=== PATIENT | female | born 1980 | race Caucasian/White ===

== ENCOUNTER 2019-03-01 13:10 | Emergency (ER) | payer OTHER ==
[~2019-03-01] VITALS: Ht 165 cm; Wt 93.1 kg
[~2019-03-01 13:10] MED LIST: AZIT250T12 PO; PRD20T PO
--- NOTE | 2019-03-01 13:29 | ED GI ---
General Chief Complaint: Abdominal/GI Problems Stated Complaint: VOMITING / DIARRHEA Source of Information: Patient Exam Limitations: No Limitations History of Present Illness Date Seen by Provider: Mar 01, 2019 Time Seen by Provider: 13:28 Initial Comments To ER with nausea vomiting diarrhea for 3 days. Last night she seemed to be on the min, this morning at all recurred. She has some intermittent cramping to the right upper abdomen, intermittent cramping to the lower abdomen prior to a bowel movement. No fever no chills Timing/Duration: 1-2 Days Severity/Quality: Cramping Location: RUQ, Suprapubic Radiation: No Radiation Activities at Onset: None Associated Symptoms: Nausea/Vomiting Allergies and Home Medications Allergies Coded Allergies: Penicillins (Verified Allergy, Unknown, 12/13/15) Tetracyclines (Verified Allergy, Unknown, 12/13/15) acetaminophen (Verified Allergy, Unknown, 12/13/15) hydrocodone (Verified Allergy, Unknown, 12/13/15) iodine (Verified Allergy, Unknown, 12/13/15) Home Medications Azithromycin 250 Mg Tablet, 250 MG PO UD TAKE 2 TABLETS ON DAY ONE THEN TAKE 1 TABLET DAILY FOR FOUR MORE DAYS Prescribed by: MICHAEL MORALES on 12/13/152007 Prednisone 20 Mg Tab, 40 MG PO DAILY Prescribed by: MICHAEL MORALES on 12/13/152007 Patient Home Medication List Home Medication List Reviewed: Yes Review of Systems Review of Systems Constitutional: see HPI EENTM: No Symptoms Reported Respiratory: No Symptoms Reported Cardiovascular: No Symptoms Reported Gastrointestinal: See HPI, Abdominal Pain, Diarrhea, Nausea, Vomiting Genitourinary: No Symptoms Reported Musculoskeletal: no symptoms reported Skin: no symptoms reported Psychiatric/Neurological: No Symptoms Reported Endocrine: No Symptoms Reported Hematologic/Lymphatic: No Symptoms Reported Past Ugkzovz-Ucqkfl-Cawxko Hx Patient Social History Type Used: Cigarettes Recent Foreign Travel: No Contact w/Someone Who Travel: No Recent Hopitalizations: No Past Medical History Abdominal Reproductive Disorders: No Diverticulosis Physical Exam Vital Signs Vital Signs - First Documented 03/01/19 13:23 Pulse 109 Resp 20 B/P (MAP) 126/98 (107) Pulse Ox 97 O2 Delivery Room Air Capillary Refill : Height/Weight/BMI Height: 5'" Weight: 200lbs. oz. 90.056379pr; BMI Method:Stated General Appearance: WD/WN, no apparent distress, other (alert no distress very pleasant. A little tachycardia at 103-105) HEENT: PERRL/EOMI, normal ENT inspection Respiratory: no respiratory distress, no accessory muscle use Cardiovascular: no murmur, tachycardia Gastrointestinal: normal bowel sounds, non tender, soft Extremities: normal range of motion, non-tender Neurologic/Psychiatric: alert, normal mood/affect, oriented x 3 Skin: normal color, warm/dry Progress/Results/Core Measures Results/Orders Lab Results Laboratory Tests Test 03/01/19 13:50 Range/Units White Blood Count 11.1 H 4.3-11.0 10^3/uL Red Blood Count 5.72 4.35-5.85 10^6/uL Hemoglobin 13.8 11.5-16.0 G/DL Hematocrit 42 35-52 % Mean Corpuscular Volume 73 L 80-99 FL Mean Corpuscular Hemoglobin 24 L 25-34 PG Mean Corpuscular Hemoglobin Concent 33 32-36 G/DL Red Cell Distribution Width 18.9 H 10.0-14.5 % Platelet Count 476 H 130-400 10^3/uL Mean Platelet Volume 9.7 7.4-10.4 FL Neutrophils (%) (Auto) 87 H 42-75 % Lymphocytes (%) (Auto) 7 L 12-44 % Monocytes (%) (Auto) 5 0-12 % Eosinophils (%) (Auto) 1 0-10 % Basophils (%) (Auto) 0 0-10 % Neutrophils # (Auto) 9.7 H 1.8-7.8 X 10^3 Lymphocytes # (Auto) 0.8 L 1.0-4.0 X 10^3 Monocytes # (Auto) 0.6 0.0-1.0 X 10^3 Eosinophils # (Auto) 0.1 0.0-0.3 10^3/uL Basophils # (Auto) 0.0 0.0-0.1 10^3/uL My Orders Orders - MICHAEL MORALES APRN Cbc With Automated Diff (03/01/19 13:25) Comprehensive Metabolic Panel (03/01/19 13:25) Lipase (03/01/19 13:25) Ua Culture If Indicated (03/01/19 13:25) Hcg,Qualitative Serum (03/01/19 13:25) Ns Iv 1000 Ml (Sodium Chloride 0.9%) (03/01/19 13:30) Ondansetron Injection (Zofran Injectio (03/01/19 13:30) Hyoscyamine Sl Tablet (Levsin Sl Tablet) (03/01/19 13:30) Manual Differential (03/01/19 13:50) Medications Given in ED Current Medications Medications Dose Ordered Sig/Shima Route Start Time Stop Time Status Last Admin Dose Admin Hyoscyamine Sulfate 0.25 mg ONCE ONCE PO 03/01/19 13:30 03/01/19 13:31 DC 03/01/19 13:47 0.25 MG Ondansetron HCl 8 mg ONCE ONCE IVP 03/01/19 13:30 03/01/19 13:31 DC 03/01/19 13:47 8 MG Vital Signs/I&O 03/01/19 13:23 Pulse 109 Resp 20 B/P (MAP) 126/98 (107) Pulse Ox 97 O2 Delivery Room Air Departure Impression Primary Impression: Nausea vomiting and diarrhea Disposition: HOME, SELF-CARE Condition: Improved Departure-Patient Inst. Decision time for Depature: 14:00 Referrals: [facility] [place] (PCP) Primary Care Physician CHARO HERNANDEZ APRN (Family) Primary Care Physician Patient Instructions: Viral Gastroenteritis, Adult (DC) Add. Discharge Instructions: 1. Take nausea medication as directed 2. Clear liquids only for the next 12 hours such as Pedialyte, Gatorade, chicken broth, Jell-O. Use the nausea medication in addition to fyrf-iab-yymonxp antidiarrheals like Imodium to help with diarrhea. Follow-up with your doctor next week for recheck and further evaluation if symptoms persist. All discharge instructions reviewed with patient and/or family. Voiced understanding. Scripts Ondansetron (Ondansetron Odt) 8 Mg Tab.rapdis 8 MG PO Q6H PRN for NAUSEA/VOMITING-1ST LINE, #20 TAB Prov: MICHAEL MORALES APRN 03/01/19 Work/School Note: Work Release Form Date Seen in the Emergency Department: Mar 01, 2019 Return to Work: Mar 03, 2019 MICHAEL MORALES APRN Mar 01, 2019 13:29
[2019-03-01] MEDS ORDERED: ONDANSETRON 4 MG/2 ML (SDV) Z0FRAN IVP ONE (13:30)
[2019-03-01] MEDS ORDERED: HYOSCYAMINE 0.125 MG (LEVSIN) TAB PO ONE (13:30)
[2019-03-01] MEDS ORDERED: NS IV 1000 ML 1,000 ML IV SCH (13:30)
[2019-03-01 13:59] LABS: BASOPHILS % (AUTO) 0 % (0-10); EOSINOPHILS # (AUTO) 0.1 10^3/uL (0.0-0.3); EOSINOPHILS % (AUTO) 1 % (0-10); HEMATOCRIT 42 % (35-52); HEMOGLOBIN 13.8 G/DL (11.5-16.0); LYMPHOCYTES # (AUTO) 0.8 X 10^3 (1.0-4.0); LYMPHOCYTES % (AUTO) 7 % (12-44); MEAN CORPUSCULAR HEMOGLOBIN 24 PG (25-34); MEAN CORPUSCULAR HGB CONC 33 G/DL (32-36); MEAN CORPUSCULAR VOLUME 73 FL (80-99); MEAN PLATELET VOLUME 9.7 FL (7.4-10.4); MONOCYTES # (AUTO) 0.6 X 10^3 (0.0-1.0); MONOCYTES % (AUTO) 5 % (0-12); NEUTROPHILS # (AUTO) 9.7 X 10^3 (1.8-7.8); NEUTROPHILS % (AUTO) 87 % (42-75); PLATELET COUNT 476 10^3/uL (130-400); RED CELL DISTRIBUTION WIDTH 18.9 % (10.0-14.5); WHITE BLOOD COUNT 11.1 10^3/uL (4.3-11.0)
[2019-03-01] MEDS ORDERED: ONDA8TAB13 PO (14:02)
[2019-03-01 14:18] LABS: ALANINE AMINOTRANSFERASE 24 U/L (0-55); ALBUMIN 4.5 GM/DL (3.2-4.5); ALKALINE PHOSPHATASE 113 U/L (40-136); BILIRUBIN,TOTAL 0.4 MG/DL (0.1-1.0); BUN/CREATININE RATIO 14; CALCIUM 9.5 MG/DL (8.5-10.1); CARBON DIOXIDE 19 MMOL/L (21-32); CHLORIDE 104 MMOL/L (98-107); CREATININE SERUM 0.93 MG/DL (0.60-1.30); GFR ESTIMATED > 60; GLUCOSE 116 MG/DL (70-105); LIPASE 16 U/L (8-78); SODIUM 135 MMOL/L (135-145)
[2019-03-01 14:33] LABS: EOSINOPHILS % (MANUAL) 1 %; LYMPHOCYTES % (MANUAL) 1 %; MONOCYTES % (MANUAL) 4 %; NEUTROPHILS % (MANUAL) 91 %
[2019-03-01 14:33] LABS: BILIRUBIN,URINE NEGATIVE (NEGATIVE); CLARITY,URINE CLEAR; COLOR,URINE YELLOW; GLUCOSE, URINE (UA) NEGATIVE (NEGATIVE); KETONES,URINE NEGATIVE (NEGATIVE); LEUKOCYTE ESTERASE ,URINE NEGATIVE (NEGATIVE); NITRITE,URINE NEGATIVE (NEGATIVE); PROTEIN,URINE NEGATIVE (NEGATIVE)
[2019-03-01 14:36] LABS: ANISOCYTOSIS MODERATE; MICROCYTOSIS MODERATE
[2019-03-01 14:41] LABS: BACTERIA,URINE FEW /HPF; RBC,URINE RARE /HPF
[2019-03-01] MEDS ORDERED: PROMETHAZINE INJ 25 MG/ML (PHENERGAN) AMP IVP ONE (15:00)
[2019-03-01 15:47] VITALS: BP 121/90
== END 2019-03-01 15:40 | disposition home or self-care (01) ==
LOC: EDUNIT# 13:10 → ER 13:11
DX: R19.7 Diarrhea, unspecified (principal); R11.2 Nausea with vomiting, unspecified; Z88.0 Allergy status to penicillin; Z88.1 Allergy status to other antibiotic agents; Z88.6 Allergy status to analgesic agent; Z88.8 Allergy status to other drugs, medicaments and biological substances; Z79.52 Long term (current) use of systemic steroids; Z87.19 Personal history of other diseases of the digestive system
CPT/HCPCS: 36415; 80053; 81000; 83690; 84703; 85007; 85025; 85027; 96361; 96374; 96375

== ENCOUNTER → 2020-02-12 | Outpatient (CLI) | payer SELFPAY ==
[~2020-02-12] VITALS: Ht 162 cm; Wt 86.0 kg
[~2020-02-12] MED LIST changes: +KETOROLAC 60 MG/2 ML VIAL IM ONE; +KETOROLAC 60 MG/2 ML VIAL ONE; +ONDA8TAB13 PO
[2020-02-12 20:15] VITALS: BP 144/88
== END ==
LOC: ER 20:17
PROVIDERS: ATTEND Emergency Medicine
DX: M54.9 Dorsalgia, unspecified (principal)
CPT/HCPCS: 96372

== ENCOUNTER 2021-06-07 18:09 | Emergency (ER) | payer OTHER ==
[~2021-06-07 18:09] MED LIST changes: -KETOROLAC 60 MG/2 ML VIAL IM ONE; -KETOROLAC 60 MG/2 ML VIAL ONE
[2021-06-07] MEDS ORDERED: meTOprolol TARTRATE 50 MG (LOPRESSOR) TAB PO ONE (18:15)
--- NOTE | 2021-06-07 18:28 | ED General ---
General Chief Complaint: General Problems/Pain Stated Complaint: HIGH BLOOD PRESSURE, HIGH HEART RATE Source of Information: Patient Exam Limitations: No Limitations (MICHAEL MORALES APRN) History of Present Illness Date Seen by Provider: Jun 07, 2021 Time Seen by Provider: 18:28 Initial Comments To Er with c/o headache, dizziness, heart pounding, SOA with exertion, general fatigue x4 days. Timing/Duration: 4-5 Days Severity: Moderate Associated Systoms: No Chest Pain, No Cough, No Diaphoresis, No Fever/Chills; Headaches; No Nausea/Vomiting; Weakness (MICHAEL MORALES APRN) Allergies and Home Medications Allergies Coded Allergies: Penicillins (Verified Allergy, Unknown, 12/13/15) Tetracyclines (Verified Allergy, Unknown, 12/13/15) acetaminophen (Verified Allergy, Unknown, 12/13/15) hydrocodone (Verified Allergy, Unknown, 12/13/15) iodine (Verified Allergy, Unknown, 12/13/15) Patient Home Medication List Home Medication List Reviewed: Yes (MICHAEL MORALES APRN) Azithromycin (Azithromycin) 250 Mg Tablet, 250 MG PO UD Prescribed by: MICHAEL MORALES on 12/13/152007 Metoprolol Succinate (Toprol Xl) 50 Mg Tab.er.24h, 50 MG PO DAILY Prescribed by: MICHAEL MORALES on 06/07/21 193 Ondansetron (Ondansetron Odt) 8 Mg Tab.rapdis, 8 MG PO Q6H PRN for NAUSEA/VOMITING-1ST LINE Prescribed by: MICHAEL MORALES on 03/01/19 140 Prednisone (Prednisone) 20 Mg Tab, 40 MG PO DAILY Prescribed by: MICHAEL MORALES on 12/13/152007 Review of Systems Review of Systems Constitutional: see HPI EENTM: see HPI Respiratory: no symptoms reported Cardiovascular: no symptoms reported Genitourinary: no symptoms reported Musculoskeletal: no symptoms reported Skin: no symptoms reported Psychiatric/Neurological: No Symptoms Reported (MICHAEL MORALES APRN) Past Busxjet-Hrgfwd-Uypurz Hx Past Medical History Surgeries: Yes (colon resection) Abdominal Respiratory: No Cardiac: No Neurological: No Reproductive Disorders: No Gastrointestinal: Yes Diverticulosis Musculoskeletal: No Endocrine: No Cancer: No Psychosocial: No Integumentary: No Blood Disorders: No (MICHAEL MORALES APRN) Physical Exam Vital Signs Vital Signs - First Documented 06/07/21 06/07/21 18:22 19:48 Temp 36.0 Pulse 121 Resp 24 B/P (MAP) 148/120 (129) Pulse Ox 99 O2 Delivery Room Air (DIPIKAFRANNY Cleo KURTZ) Vital Signs Capillary Refill : (MICHAEL MORALES APRN) Height, Weight, BMI Height: 5'" Weight: 200lbs. oz. 90.468469qs; 34.00 BMI Method:Stated General Appearance: No Apparent Distress, WD/WN, Other (HR 122 sinus, BP 140/90 and 170/90s) Eyes: Bilateral Eye Normal Inspection, Bilateral Eye PERRL, Bilateral Eye EOMI HEENT: PERRL/EOMI, TMs Normal Neck: Full Range of Motion Respiratory: No Accessory Muscle Use, Other (lungs cta but appears dyspneic) Cardiovascular: Regular Rate, Rhythm, Normal Peripheral Pulses Gastrointestinal: Normal Bowel Sounds, Non Tender, Soft Extremity: Normal Capillary Refill, Normal Inspection Neurologic/Psychiatric: Alert, Oriented x3 Skin: Normal Color, Warm/Dry (MICHAEL MORALES APRN) Progress/Results/Core Measures Suspected Sepsis SIRS Temperature: Pulse: Respiratory Rate: Laboratory Tests 06/07/21 18:21: White Blood Count 7.2 Blood Pressure / Mean: Laboratory Tests 06/07/21 18:21: Creatinine 0.91, Platelet Count 562H, Total Bilirubin 0.3 (MICHAEL MORALES APRN) Results/Orders Lab Results Laboratory Tests Test 06/07/21 18:21 06/07/21 18:26 Range/Units White Blood Count 7.2 4.3-11.0 10^3/uL Red Blood Count 4.85 3.80-5.11 10^6/uL Hemoglobin 11.5 11.5-16.0 g/dL Hematocrit 37 35-52 % Mean Corpuscular Volume 77 L 80-99 fL Mean Corpuscular Hemoglobin 24 L 25-34 pg Mean Corpuscular Hemoglobin Concent 31 L 32-36 g/dL Red Cell Distribution Width 15.3 H 10.0-14.5 % Platelet Count 562 H 130-400 10^3/uL Mean Platelet Volume 9.2 9.0-12.2 fL Immature Granulocyte % (Auto) 1 % Neutrophils (%) (Auto) 57 42-75 % Lymphocytes (%) (Auto) 31 12-44 % Monocytes (%) (Auto) 7 0-12 % Eosinophils (%) (Auto) 3 0-10 % Basophils (%) (Auto) 1 0-10 % Neutrophils # (Auto) 4.1 1.8-7.8 10^3/uL Lymphocytes # (Auto) 2.2 1.0-4.0 10^3/uL Monocytes # (Auto) 0.5 0.0-1.0 10^3/uL Eosinophils # (Auto) 0.2 0.0-0.3 10^3/uL Basophils # (Auto) 0.1 0.0-0.1 10^3/uL Immature Granulocyte # (Auto) 0.0 0.0-0.1 10^3/uL D-Dimer 0.46 0.00-0.49 UG/ML Sodium Level 138 135-145 MMOL/L Potassium Level 3.7 3.6-5.0 MMOL/L Chloride Level 104 98-107 MMOL/L Carbon Dioxide Level 19 L 21-32 MMOL/L Anion Gap 15 H 5-14 MMOL/L Blood Urea Nitrogen 9 7-18 MG/DL Creatinine 0.91 0.60-1.30 MG/DL Estimat Glomerular Filtration Rate 82 BUN/Creatinine Ratio 10 Glucose Level 126 H 70-105 MG/DL Calcium Level 9.2 8.5-10.1 MG/DL Corrected Calcium 9.2 8.5-10.1 MG/DL Total Bilirubin 0.3 0.1-1.0 MG/DL Aspartate Amino Transf (AST/SGOT) 14 5-34 U/L Alanine Aminotransferase (ALT/SGPT) 20 0-55 U/L Alkaline Phosphatase 121 40-136 U/L Troponin I < 0.028 <0.028 NG/ML C-Reactive Protein High Sensitivity 1.46 H 0.00-0.50 MG/DL Total Protein 7.7 6.4-8.2 GM/DL Albumin 4.0 3.2-4.5 GM/DL Procalcitonin 0.03 <0.10 NG/ML Thyroid Stimulating Hormone (TSH) 2.06 0.35-4.94 UIU/ML Serum Test, Qualitative NEGATIVE NEGATIVE Monoscreen NEGATIVE NEGATIVE Influenza Type A (RT-PCR) Not Detected Not Detecte Influenza Type B (RT-PCR) Not Detected Not Detecte SARS-CoV-2 RNA (RT-PCR) Not Detected Not Detecte (FRANNY BAR DO) Medications Given in ED Current Medications Medications Dose Ordered Sig/Shima Route Start Time Stop Time Status Last Admin Dose Admin Metoprolol Tartrate 50 mg ONCE ONCE PO 06/07/21 18:15 06/07/21 18:17 DC 06/07/21 18:27 50 MG (FRANNY BAR DO) Vital Signs/I&O 06/07/21 06/07/21 18:22 19:48 Temp 36.0 36.0 Pulse 121 101 Resp 24 20 B/P (MAP) 148/120 (129) 129/103 Pulse Ox 99 O2 Delivery Room Air (FRANNY BAR DO) Vital Signs/I&O Capillary Refill : (MICHAEL MORALES APRN) Departure Communication (Admissions) 1934-BP down to 134/84, HR 89. (MICHAEL MORALES APRN) Impression Primary Impression: Hypertension Additional Impression: Viral syndrome Disposition: HOME, SELF-CARE Condition: Stable Departure-Patient Inst. Decision time for Depature: 19:05 (MICHAEL MORALES APRN) Referrals: [facility] [place] (PCP) Primary Care Physician CHARO HERNANDEZ APRN (Family) Primary Care Physician Patient Instructions: High Blood Pressure (DC), Viral Syndrome (DC) Scripts Metoprolol Succinate (Toprol Xl) 50 Mg Tab.er.24h 50 MG PO DAILY, #20 TAB Prov: MICHAEL MORALES APRN 06/07/21 Work/School Note: Work Release Form Date Seen in the Emergency Department: Jun 07, 2021 Return to Work: Jun 08, 2021 ATTENDING PHYSICIAN NOTE: I WAS PHYSICALLY PRESENT ER PHYSICIAN, BUT I WAS NOT INVOLVED IN ANY DECISION MAKING OR ANY CARE OF THIS PATIENT. (FRANNY BAR DO) MICHAEL MORALES APRN Jun 07, 2021 18:28 FRANNY BAR DO Jun 08, 2021 03:32
[2021-06-07 18:30] LABS: BASOPHILS # (AUTO) 0.1 10^3/uL (0.0-0.1); BASOPHILS % (AUTO) 1 % (0-10); EOSINOPHILS # (AUTO) 0.2 10^3/uL (0.0-0.3); EOSINOPHILS % (AUTO) 3 % (0-10); HEMATOCRIT 37 % (35-52); HEMOGLOBIN 11.5 g/dL (11.5-16.0); LYMPHOCYTES # (AUTO) 2.2 10^3/uL (1.0-4.0); LYMPHOCYTES % (AUTO) 31 % (12-44); MEAN CORPUSCULAR HEMOGLOBIN 24 pg (25-34); MEAN CORPUSCULAR HGB CONC 31 g/dL (32-36); MEAN CORPUSCULAR VOLUME 77 fL (80-99); MEAN PLATELET VOLUME 9.2 fL (9.0-12.2); MONOCYTES # (AUTO) 0.5 10^3/uL (0.0-1.0); MONOCYTES % (AUTO) 7 % (0-12); NEUTROPHILS # (AUTO) 4.1 10^3/uL (1.8-7.8); NEUTROPHILS % (AUTO) 57 % (42-75); PLATELET COUNT 562 10^3/uL (130-400); WHITE BLOOD COUNT 7.2 10^3/uL (4.3-11.0)
[2021-06-07 18:38] LABS: CHLORIDE 104 MMOL/L (98-107); POTASSIUM 3.7 MMOL/L (3.6-5.0); SODIUM 138 MMOL/L (135-145)
[2021-06-07 18:39] LABS: CALCIUM 9.2 MG/DL (8.5-10.1)
[2021-06-07 18:40] LABS: GLUCOSE 126 MG/DL (70-105); TOTAL PROTEIN 7.7 GM/DL (6.4-8.2)
[2021-06-07 18:41] LABS: CARBON DIOXIDE 19 MMOL/L (21-32)
[2021-06-07 18:42] LABS: BILIRUBIN,TOTAL 0.3 MG/DL (0.1-1.0)
[2021-06-07 18:44] LABS: ALKALINE PHOSPHATASE 121 U/L (40-136); CREATININE SERUM 0.91 MG/DL (0.60-1.30); GFR ESTIMATED 82
[2021-06-07 18:45] LABS: BUN/CREATININE RATIO 10
--- NOTE | 2021-06-07 18:45 | Diagnostic Imaging Report ---
EXAMINATION: Chest, one view. HISTORY: Shortness of breath. COMPARISON: 12/13/2015. FINDINGS: The lung volumes are low. No focal consolidation is seen. No large pleural effusion or pneumothorax is seen. The cardiomediastinal silhouette is normal in size and contour. No acute osseous abnormality is seen. IMPRESSION: 1. Low lung volumes, likely due to poor inspiratory effort. No focal consolidation or pleural effusion. Dictated by: Dictated on workstation # [id number]
[2021-06-07 18:47] LABS: ALANINE AMINOTRANSFERASE 20 U/L (0-55)
[2021-06-07] MEDS ORDERED: METO-352 PO (19:35)
[2021-06-07 19:48] VITALS: BP 129/103
== END 2021-06-07 19:50 | disposition home or self-care (01) ==
LOC: EDUNIT# 18:09 → ER 18:11
DX: I10 Essential (primary) hypertension (principal); B34.9 Viral infection, unspecified; Z20.822 Contact with and (suspected) exposure to COVID-19
CPT/HCPCS: 36415; 71045; 80053; 84145; 84443; 84481; 84484; 84703; 85025; 85379; 86141; 86308; 87636; 93005

== ENCOUNTER 2022-03-17 20:01 | Emergency (ER) | payer OTHER ==
[~2022-03-17 20:01] MED LIST changes: +METO-352 PO
[2022-03-17 20:30] LABS: BASOPHILS # (AUTO) 0.1 10^3/uL (0.0-0.1); BASOPHILS % (AUTO) 1 % (0-10); EOSINOPHILS # (AUTO) 0.1 10^3/uL (0.0-0.3); EOSINOPHILS % (AUTO) 1 % (0-10); HEMATOCRIT 38 % (35-52); HEMOGLOBIN 12.3 g/dL (11.5-16.0); LYMPHOCYTES # (AUTO) 1.5 10^3/uL (1.0-4.0); LYMPHOCYTES % (AUTO) 19 % (12-44); MEAN CORPUSCULAR HEMOGLOBIN 25 pg (25-34); MEAN CORPUSCULAR HGB CONC 33 g/dL (32-36); MEAN CORPUSCULAR VOLUME 77 fL (80-99); MEAN PLATELET VOLUME 9.3 fL (9.0-12.2); MONOCYTES # (AUTO) 0.3 10^3/uL (0.0-1.0); MONOCYTES % (AUTO) 4 % (0-12); NEUTROPHILS # (AUTO) 6.2 10^3/uL (1.8-7.8); NEUTROPHILS % (AUTO) 75 % (42-75); PLATELET COUNT 489 10^3/uL (130-400); WHITE BLOOD COUNT 8.3 10^3/uL (4.3-11.0)
[2022-03-17] MEDS ORDERED: LACTATED RINGERS 1,000 ML IV SCH (20:30)
[2022-03-17] MEDS ORDERED: ONDANSETRON 4 MG/2 ML (SDV) Z0FRAN IVP ONE (20:30)
[2022-03-17] MEDS ORDERED: PROMETHAZINE INJ 25 MG/ML (PHENERGAN) AMP IVP ONE (20:30)
--- NOTE | 2022-03-17 20:33 | ED Abdominal Pain ---
General Chief Complaint: Abdominal/GI Problems Stated Complaint: ABDOMINAL PAIN, NAUSEA, VOMITING Nursing Triage Note: PT ARRIVAL TO ER VIA PRIVATE VEHICLE FROM HOME WITH COMPLAINTS OF ABDOMINAL CRAMPING, NAUSEA, VOMITING, CHILLS X3 DAYS. PT STATES THAT SHE HAS BEEN TAKING ZOFRAN AT HOME WITHOUT IMPROVEMENT. 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 PT IS AFEBRILE. Source of Information: Patient Exam Limitations: No Limitations History of Present Illness Date Seen by Provider: Mar 17, 2022 Time Seen by Provider: 20:33 Initial Comments To ER with 4-day history of lower abdominal cramping, nausea and diarrhea. She started vomiting on her way here this evening which is the first episode of vomiting she has had. No fevers no cough. Timing/Duration: 4-5 Days Severity/Quality: Moderate Radiation: No Radiation Activities at Onset: None Associated Symptoms: Denies Symptoms Allergies and Home Medications Allergies Coded Allergies: Penicillins (Verified Allergy, Unknown, 12/13/15) Tetracyclines (Verified Allergy, Unknown, 12/13/15) acetaminophen (Verified Allergy, Unknown, 12/13/15) hydrocodone (Verified Allergy, Unknown, 12/13/15) iodine (Verified Allergy, Unknown, 12/13/15) Patient Home Medication List Home Medication List Reviewed: Yes Azithromycin (Azithromycin) 250 Mg Tablet, 250 MG PO UD Prescribed by: MICHAEL MORALES on 12/13/152007 Metoprolol Succinate (Toprol Xl) 50 Mg Tab.er.24h, 50 MG PO DAILY Prescribed by: MICHAEL MORALES on 06/07/21 193 Ondansetron (Ondansetron Odt) 8 Mg Tab.rapdis, 8 MG PO Q6H PRN for NAUSEA/VOMITING-1ST LINE Prescribed by: MICHAEL MORALES on 03/01/19 1402 Prednisone (Prednisone) 20 Mg Tab, 40 MG PO DAILY Prescribed by: MICHAEL MORALES on 12/13/152007 Promethazine HCl (Promethazine Tablet) 25 Mg Tablet, 25 MG PO Q8H PRN for NAUSEA/VOMITING Prescribed by: MICHAEL MORALES on 03/17/22 215 Review of Systems Review of Systems Constitutional: see HPI EENTM: No Symptoms Reported Respiratory: No Symptoms Reported Cardiovascular: No Symptoms Reported Gastrointestinal: See HPI, Abdominal Pain Genitourinary: No Symptoms Reported Musculoskeletal: no symptoms reported Skin: no symptoms reported Psychiatric/Neurological: No Symptoms Reported Endocrine: No Symptoms Reported Hematologic/Lymphatic: No Symptoms Reported Past Hvgmala-Lndfno-Ccjebp Hx Patient Social History Tobacco Use?: No Use of E-Cig and/or Vaping dev: No Substance use?: No Alcohol Use?: No Pt feels they are or have been: No Immunizations Up To Date Influenza Vaccine Up-to-Date: Yes; Up-to-Date First/Initial COVID19 Vaccinat: 2020 Second COVID19 Vaccination Ankush: 2020 Third COVID19 Vaccination Date: 2020 COVID19 Vaccine [employer]ed [employer]er: [email or web address] Past Medical History Surgeries: Yes (colon resection) Abdominal Respiratory: No Cardiac: No Neurological: No Last Menstrual Period: Mar 15, 2022 Reproductive Disorders: No Gastrointestinal: Yes Diverticulosis Musculoskeletal: No Endocrine: No Cancer: No Psychosocial: No Integumentary: No Blood Disorders: No Physical Exam Vital Signs Vital Signs - First Documented 03/17/22 20:09 Temp 36.4 Pulse 94 Resp 20 B/P (MAP) 168/104 (125) Pulse Ox 99 O2 Delivery Room Air Capillary Refill : Less Than 3 Seconds Height/Weight/BMI Height: 5'" Weight: 200lbs. oz. 90.108506ra; 34.00 BMI Method:Stated General Appearance: WD/WN, no apparent distress Neck: non-tender, full range of motion Respiratory: no respiratory distress, no accessory muscle use Cardiovascular: regular rate, rhythm, no murmur Gastrointestinal: normal bowel sounds, non tender, soft Extremities: normal range of motion, non-tender Neurologic/Psychiatric: alert, normal mood/affect, oriented x 3 Skin: normal color, warm/dry Progress/Results/Core Measures Results/Orders Lab Results Laboratory Tests Test 03/17/22 20:21 03/17/22 20:42 03/17/22 21:47 Range/Units White Blood Count 8.3 4.3-11.0 10^3/uL Red Blood Count 4.94 3.80-5.11 10^6/uL Hemoglobin 12.3 11.5-16.0 g/dL Hematocrit 38 35-52 % Mean Corpuscular Volume 77 L 80-99 fL Mean Corpuscular Hemoglobin 25 25-34 pg Mean Corpuscular Hemoglobin Concent 33 32-36 g/dL Red Cell Distribution Width 14.8 H 10.0-14.5 % Platelet Count 489 H 130-400 10^3/uL Mean Platelet Volume 9.3 9.0-12.2 fL Immature Granulocyte % (Auto) 0 % Neutrophils (%) (Auto) 75 42-75 % Lymphocytes (%) (Auto) 19 12-44 % Monocytes (%) (Auto) 4 0-12 % Eosinophils (%) (Auto) 1 0-10 % Basophils (%) (Auto) 1 0-10 % Neutrophils # (Auto) 6.2 1.8-7.8 10^3/uL Lymphocytes # (Auto) 1.5 1.0-4.0 10^3/uL Monocytes # (Auto) 0.3 0.0-1.0 10^3/uL Eosinophils # (Auto) 0.1 0.0-0.3 10^3/uL Basophils # (Auto) 0.1 0.0-0.1 10^3/uL Immature Granulocyte # (Auto) 0.0 0.0-0.1 10^3/uL Sodium Level 138 135-145 MMOL/L Potassium Level 3.6 3.6-5.0 MMOL/L Chloride Level 105 98-107 MMOL/L Carbon Dioxide Level 23 21-32 MMOL/L Anion Gap 10 5-14 MMOL/L Blood Urea Nitrogen 7 7-18 MG/DL Creatinine 0.77 0.60-1.30 MG/DL Estimat Glomerular Filtration Rate 101 BUN/Creatinine Ratio 9 Glucose Level 95 70-105 MG/DL Calcium Level 9.5 8.5-10.1 MG/DL Corrected Calcium 9.4 8.5-10.1 MG/DL Total Bilirubin 0.3 0.1-1.0 MG/DL Aspartate Amino Transf (AST/SGOT) 13 5-34 U/L Alanine Aminotransferase (ALT/SGPT) 16 0-55 U/L Alkaline Phosphatase 101 40-136 U/L C-Reactive Protein High Sensitivity 1.33 H 0.00-0.50 MG/DL Total Protein 7.8 6.4-8.2 GM/DL Albumin 4.1 3.2-4.5 GM/DL Lipase 25 8-78 U/L Influenza Type A (RT-PCR) Not Detected Not Detecte Influenza Type B (RT-PCR) Not Detected Not Detecte SARS-CoV-2 RNA (RT-PCR) Not Detected Not Detecte Urine Color YELLOW Urine Clarity CLEAR Urine pH 5.5 5-9 Urine Specific Sellers <=1.005 1.016-1.022 Urine Protein NEGATIVE NEGATIVE Urine Glucose (UA) NEGATIVE NEGATIVE Urine Ketones NEGATIVE NEGATIVE Urine Nitrite NEGATIVE NEGATIVE Urine Bilirubin NEGATIVE NEGATIVE Urine Urobilinogen 0.2 < = 1.0 MG/DL Urine Leukocyte Esterase TRACE H NEGATIVE Urine RBC (Auto) 2+ H NEGATIVE Urine RBC 0-2 /HPF Urine WBC 0-2 /HPF Urine Squamous Epithelial Cells 0-2 /HPF Urine Crystals NONE /LPF Urine Bacteria TRACE /HPF Urine Casts NONE /LPF Urine Mucus NEGATIVE /LPF Urine Culture Indicated NO My Orders Orders - MICHAEL MORALES APRN Cbc With Automated Diff (03/17/22 20:24) Comprehensive Metabolic Panel (03/17/22 20:24) Ed Iv/Invasive Line Start (03/17/22 20:24) Lactated Ringers (Lr 1000 Ml Iv Solution (03/17/22 20:30) Ondansetron Injection (Zofran Injectio (03/17/22 20:30) Promethazine Injection (Phenergan Injec (03/17/22 20:30) Hs C Reactive Protein (03/17/22 20:24) Ua Culture If Indicated (03/17/22 20:31) Lipase (03/17/22 20:31) Influenza A And B By Pcr (03/17/22 21:06) Covid 19 Inhouse Test (03/17/22 21:06) Ketorolac Injection (Toradol Injection) (03/17/22 21:15) Medications Given in ED Current Medications Medications Dose Ordered Sig/Shima Route Start Time Stop Time Status Last Admin Dose Admin Ketorolac Tromethamine 15 mg ONCE ONCE IVP 03/17/22 21:15 03/17/22 21:16 DC 03/17/22 21:21 15 MG Ondansetron HCl 4 mg ONCE ONCE IVP 03/17/22 20:30 03/17/22 20:31 DC 03/17/22 20:31 4 MG Promethazine HCl 12.5 mg ONCE ONCE IVP 03/17/22 20:30 03/17/22 20:31 DC 03/17/22 20:31 12.5 MG Vital Signs/I&O 03/17/22 03/17/22 20:09 22:14 Temp 36.4 Pulse 94 87 Resp 20 20 B/P (MAP) 168/104 (125) 134/91 Pulse Ox 99 100 O2 Delivery Room Air Room Air Blood Pressure Mean: 125 Departure Communication (Admissions) MDM I reviewed her labs. Symptoms are better after 2.5 mg of Phenergan and 1 L of IV fluids and 4 mg of Zofran. Given the normal labs and diffuse lower abdominal pain I do not feel that CT imaging is necessary. We will treat her for a viral gastroenteritis. I will discharge home with a prescription for Phenergan, clear liquids off work today tomorrow and follow-up with primary care next week. Return to ER for any worsening in the meantime. Impression Primary Impression: Gastroenteritis Disposition: HOME, SELF-CARE Condition: Improved Departure-Patient Inst. Decision time for Depature: 21:52 Referrals: MARTIN CHAVARRIA APRN (PCP/Family) Primary Care Physician Patient Instructions: Viral Gastroenteritis in Adults Add. Discharge Instructions: All discharge instructions reviewed with patient and/or family. Voiced understanding. Scripts Promethazine HCl (Promethazine Tablet) 25 Mg Tablet 25 MG PO Q8H PRN for NAUSEA/VOMITING, #14 TAB 0 Refills Prov: MICHAEL MORALES APRN 03/17/22 Work/School Note: Work Release Form Date Seen in the Emergency Department: Mar 17, 2022 Return to Work: Mar 19, 2022 MICHAEL MORALES APRN Mar 17, 2022 20:33
[2022-03-17 20:35] LABS: ALBUMIN 4.1 GM/DL (3.2-4.5); POTASSIUM 3.6 MMOL/L (3.6-5.0)
[2022-03-17 20:37] LABS: CALCIUM 9.5 MG/DL (8.5-10.1)
[2022-03-17 20:38] LABS: TOTAL PROTEIN 7.8 GM/DL (6.4-8.2)
[2022-03-17 20:39] LABS: BILIRUBIN,TOTAL 0.3 MG/DL (0.1-1.0)
[2022-03-17 20:42] LABS: CREATININE SERUM 0.77 MG/DL (0.60-1.30)
[2022-03-17] MEDS ORDERED: KETOROLAC 30 MG/ML VIAL IVP ONE (21:15)
[2022-03-17] MEDS ORDERED: PROM25TA14 PO (21:53)
[2022-03-17 21:57] LABS: BILIRUBIN,URINE NEGATIVE (NEGATIVE); CLARITY,URINE CLEAR; COLOR,URINE YELLOW; GLUCOSE, URINE (UA) NEGATIVE (NEGATIVE); KETONES,URINE NEGATIVE (NEGATIVE); LEUKOCYTE ESTERASE ,URINE TRACE (NEGATIVE); NITRITE,URINE NEGATIVE (NEGATIVE); PH,URINE 5.5 (5-9); PROTEIN,URINE NEGATIVE (NEGATIVE)
[2022-03-17 22:06] LABS: BACTERIA,URINE TRACE /HPF; RBC,URINE 0-2 /HPF; SQUAMOUS EPITHELIAL CELL,UR 0-2 /HPF; WBC,URINE 0-2 /HPF
[2022-03-17 22:14] VITALS: BP 134/91
[2022-03-17] MEDS ORDERED: PROMETHAZINE 25 MG (PHENERGAN) TAB PO ONE (22:15)
== END 2022-03-17 22:21 | disposition home or self-care (01) ==
LOC: EDUNIT# 20:01 → ER 20:03
DX: K52.9 Noninfective gastroenteritis and colitis, unspecified (principal); Z87.19 Personal history of other diseases of the digestive system; Z90.49 Acquired absence of other specified parts of digestive tract; Z88.6 Allergy status to analgesic agent; Z20.822 Contact with and (suspected) exposure to COVID-19
CPT/HCPCS: 36415; 80053; 81000; 83690; 85025; 86141; 87636; 99284

== ENCOUNTER 2022-08-24 07:26 | Outpatient (RCR) | payer OTHER ==
[~2022-08-24 07:26] MED LIST changes: +PROM25TA14 PO
[2022-08-24] MEDS ORDERED: IRON SUCROSE 200 MG/10 ML (VENOFER) VIAL IV SCH (07:45)
[2022-08-24] MEDS ORDERED: ONDANSETRON 4 MG/2 ML (SDV) Z0FRAN ONE (09:35)
[2022-08-24] MEDS ORDERED: NS IV 1000 ML 1,000 ML ONE (09:36)
[2022-08-24] MEDS ORDERED: NS IV 1000 ML 1,000 ML IV SCH (09:45)
[2022-08-24] MEDS ORDERED: ONDANSETRON 4 MG/2 ML (SDV) Z0FRAN IVP ONE (09:45)
[2022-08-24 10:00] VITALS: BP 104/64
== END 2022-09-08 | disposition home or self-care (01) ==
LOC: SDC 07:26
PROVIDERS: ATTEND Nurse Practitioner Family
DX: D50.9 Iron deficiency anemia, unspecified (principal)
CPT/HCPCS: 96360; 96365